=== PATIENT | female | born 1995 | race Caucasian/White ===

== ENCOUNTER 2017-02-28 12:33 | Emergency (ER) | payer BC, MEDICAID ==
[~2017-02-28] VITALS: Ht 170.2 cm; Wt 72.6 kg
[2017-02-28 13:02] VITALS: BP 111/75
== END 2017-02-28 13:20 | disposition home or self-care (01) ==
LOC: ER 12:33
DX: J03.90 Acute tonsillitis, unspecified (principal); J04.0 Acute laryngitis; Z91.040 Latex allergy status